=== PATIENT | male | born 1995 ===

== ENCOUNTER 2017-01-14 11:54 | Emergency (ER) | payer OTHER ==
[2017-01-14 12:06] VITALS: BMI 32.1
[2017-01-14 12:08] VITALS: BP 130/81; PULSE 78; RESP 18; TEMP 99.8; O2SAT 98
--- NOTE | 2017-01-14 12:13 | ED PDOC ---
Lower Extremity Pain/Injury Time Seen by Provider: 01/14/17 12:07 Chief Complaint (Provider): Right foot pain History Per: Patient History/Exam Limitations: no limitations Current Symptoms Are (Timing): Still Present Additional Complaint(s): 21 yo M in Ed for eval of right foot 1st to injury sustained last night injured while truing to get into are. pain with ROM of toe, discoloration to toe nail. no swelling improve, no radiation of pain only to distal aspect of toe. - Risk Factors DVT Risk Factors: Pos: None Past Medical History Reviewed: Historical Data, Nursing Documentation, Vital Signs Vital Signs: Last Vital Signs Temp 99.8 F H 01/14/17 12:05 Pulse 78 01/14/17 12:05 Resp 18 01/14/17 12:05 BP 130/81 01/14/17 12:05 Pulse Ox 98 01/14/17 12:05 - Medical History PMH: No Chronic Diseases - Family History Family History: States: No Known Family Hx - Allergies Allergies/Adverse Reactions: Allergies Allergy/AdvReac Type Severity Reaction Status Date / Time diphenhydramine AdvReac HEADACHE Verified 01/14/17 12:10 [From Advil PM] ibuprofen [From Advil PM] AdvReac HEADACHE Verified 01/14/17 12:10 Wells Criteria for PE - Wells Criteria for Pulmonary Embolism Clinical Signs and Symptoms of DVT: No P.E is #1 Diagnosis, or Equally Likely: No Heart Rate >100: No Immobilization at least 3 days;Surgery previous 4 weeks: No Previous, objectively diagnosed PE or DVT: No Hemoptysis: No Malignancy w/treatment within 6 months, or palliative: No Total Score: 0 Review of Systems ROS Statement: Except As Marked, All Systems Reviewed And Found Negative Musculoskeletal: Positive for: Foot Pain Physical Exam - Reviewed Nursing Documentation Reviewed: Yes Vital Signs Reviewed: Yes - Physical Exam Appears: Positive for: Well, Non-toxic, No Acute Distress Skin: Positive for: Normal Color, Warm, Dry Respiratory: Negative for: Accessory Muscle Use, Respiratory Distress Extremity: Positive for: Other (right toe: 1st digit-nail with hematoma mild tenderness noted mild swelling. dec ROM due to pain.) Neurologic/Psych: Positive for: Alert, Oriented (x3) - ECG O2 Sat by Pulse Oximetry: 98 (RA) Pulse Ox Interpretation: Normal - Radiology X-Ray: Interpreted by Me (active fracture) Medical Decision Making Medical Decision Making: Time: 12:11 Initial impression: Right foot pain Initial plan: Right foot x-ray normal impression of xray toe edgar taped and given surgical shoe with dhruv with podiatry ~ Scribe Attestation: Documented by Yolande Astudillo, acting as a scribe for EDWIN Richey. Provider Scribe Attestation: All medical record entries made by the Scribe were at my direction and personally dictated by me. I have reviewed the chart and agree that the record accurately reflects my personal performance of the history, physical exam, medical decision making, and the department course for this patient. I have also personally directed, reviewed, and agree with the discharge instructions and disposition. Disposition - Clinical Impression Clinical Impression: Toe injury - Patient ED Disposition Is Patient to be Admitted: No Counseled Patient/Family Regarding: Studies Performed, Diagnosis, Need For Followup - Disposition Referrals: Podiatry Clinic [Outside] Disposition: Routine/Home Disposition Time: 12:52 Condition: STABLE Instructions: Subungual Hematoma (ED)
--- NOTE | 2017-01-14 14:14 | RAD ---
PROCEDURE: Right Foot Radiographs. HISTORY: foot pain COMPARISON: None. FINDINGS: BONES: Normal. No fracture. JOINTS: Normal. SOFT TISSUES: Normal. OTHER FINDINGS: None. IMPRESSION: Normal right foot radiographs.
== END 2017-01-14 13:27 | disposition home or self-care (01) ==
LOC: H.ER 11:54
DX: S99.921A Unspecified injury of right foot, initial encounter (principal); W22.8XXA Striking against or struck by other objects, initial encounter; Y92.89 Other specified places as the place of occurrence of the external cause

== ENCOUNTER 2017-08-06 08:45 | Emergency (ER) | payer OTHER ==
[2017-08-06 08:53] VITALS: BMI 31.8
[2017-08-06 08:55] VITALS: TEMP 98.5
--- NOTE | 2017-08-06 09:25 | ED PDOC ---
Lower Extremity Pain/Injury Time Seen by Provider: 08/06/17 09:09 Chief Complaint (Nursing): Lower Extremity Problem/Injury History Per: Patient Onset/Duration Of Symptoms: Days (2) Current Symptoms Are (Timing): Still Present Severity: Mild Pain Scale Rating Of: 2 Additional Complaint(s): Right inguinal and right hip pain since yesterday. No injury. Pain radiates down front right thigh. Worse on flexion of hip. Denies abd pain Past Medical History Vital Signs: Last Vital Signs Temp 98.5 F 08/06/17 08:54 Pulse 91 H 08/06/17 08:54 Resp 20 08/06/17 08:54 BP 120/71 08/06/17 08:54 Pulse Ox 99 08/06/17 08:54 - Medical History PMH: Asthma - Family History Family History: States: Unknown Family Hx - Home Medications Home Medications: Ambulatory Orders Medication Instructions Recorded Cyclobenzaprine [Cyclobenzaprine 10 mg PO Q8 #10 tab 08/06/17 HCl] - Allergies Allergies/Adverse Reactions: Allergies Allergy/AdvReac Type Severity Reaction Status Date / Time diphenhydramine AdvReac HEADACHE Verified 01/14/17 12:10 [From Advil PM] ibuprofen [From Advil PM] AdvReac HEADACHE Verified 01/14/17 12:10 Review of Systems Constitutional: Negative for: Fever Gastrointestinal: Negative for: Nausea, Vomiting, Abdominal Pain, Diarrhea Musculoskeletal: Positive for: Other (Hip/inguinal pain) Neurological: Negative for: Weakness, Numbness Physical Exam - Physical Exam Appears: Positive for: Non-toxic, No Acute Distress Gastrointestinal/Abdominal: Positive for: Bowel Sounds, Soft. Negative for: Tenderness, Hernia Rectal: Positive for: Other (Right hip/inguinal area. No mass or hernia. Tenderness right ingunal/hip area. Pain on flexion and adduction of hip.) - ECG O2 Sat by Pulse Oximetry: 99 Disposition - Clinical Impression Clinical Impression: Inguinal strain - Patient ED Disposition Is Patient to be Admitted: No Counseled Patient/Family Regarding: Studies Performed, Diagnosis, Need For Followup, Rx Given - Disposition [facility]errals: [facility] [Outside] Disposition: Routine/Home Disposition Time: 10:08 Condition: FAIR Prescriptions: Cyclobenzaprine [Cyclobenzaprine HCl] 10 mg PO Q8 #10 tab Instructions: Groin Strain (DC) Forms: [employer] (Filipino)
[2017-08-06 10:14] VITALS: BP 128/82; PULSE 84; RESP 17; O2SAT 100
--- NOTE | 2017-08-06 13:37 | RAD ---
PROCEDURE: Right hip HISTORY: Pain COMPARISON: No prior TECHNIQUE: Ap view pelvis and right hip and lateral view right hip obtained FINDINGS: No evidence of acute fracture or dislocation. . The osseous structures appear intact. Both femoral heads are appropriately located within the respective acetabula. Note is made of a well-circumscribed rounded/elliptical shaped somewhat sclerotic appearing density overlying the inferior medial aspect of the right femoral head in the frontal projection which is not seen on additional projections and probably represents artifact. Follow-up of CT scan or MRI could be performed further evaluation only if clinically indicated. IMPRESSION: No evidence of acute displaced fracture nor dislocation. There is a well-circumscribed rounded/elliptical shaped somewhat sclerotic appearing density overlying the inferior medial aspect of the right femoral head in the frontal projection which is not seen on additional projections and probably represents artifact. Follow-up of CT scan or MRI could be performed further evaluation only if clinically indicated. Note this report was placed in PA review folder for followup.
== END 2017-08-06 10:10 | disposition home or self-care (01) ==
LOC: H.ER 08:45
DX: S39.011A Strain of muscle, fascia and tendon of abdomen, initial encounter (principal); J45.909 Unspecified asthma, uncomplicated; Z88.6 Allergy status to analgesic agent

== ENCOUNTER 2017-08-14 04:53 | Emergency (ER) | payer OTHER ==
[2017-08-14 04:53] VITALS: BMI 31.8
--- NOTE | 2017-08-14 05:56 | ED PDOC ---
Arrival/HPI - General Historian: Patient - General Chief Complaint: Hip Pain Time Seen by Provider: 08/14/17 05:05 - History of Present Illness Narrative History of Present Illness (Text): 08/14/17 05:55 21 yo M c/o R thigh pain x 1 week, reports that he started exercising, doing squats 1.5 weeks ago. Reports taking nsaids and muscle relaxer with no relief x 2 days. Reports no fever, trauma, injury, back pain, abdominal pain, urinary symptoms, trauma, injury, swelling, numbness, radiation, CP, SOB, h/o clots. ( Win NINO,Elsie Orozco) Past Medical History - Infectious Disease Hx of Infectious Diseases: None - Pulmonary Hx Asthma: Yes - Psychiatric Hx Substance Use: No - Anesthesia Hx Anesthesia: No Family/Social History Family/Social History: No Known Family HX Smoking Status: Never Smoked Hx Alcohol Use: No Hx Substance Use: No Allergies/Home Meds Allergies/Adverse Reactions: Allergies diphenhydramine [From Advil PM] Adverse Reaction (Verified 08/14/17 05:06) HEADACHE ibuprofen [From Advil PM] Adverse Reaction (Verified 08/14/17 05:06) HEADACHE Review of Systems - Review of Systems Constitutional: Normal. absent: Fatigue, Weight Change, Fevers Respiratory: Normal. absent: SOB, Cough Cardiovascular: Normal. absent: Chest Pain, Palpitations, Edema Gastrointestinal: Normal. absent: Abdominal Pain, Diarrhea, Vomiting Genitourinary Male: Normal. absent: Dysuria, Frequency Musculoskeletal: Normal, Other (R thigh pain). absent: Arthralgias, Back Pain Skin: Normal. absent: Rash Neurological: Normal. absent: Headache, Dizziness Physical Exam Vital Signs Reviewed: Yes - Systems Exam Head: Present: Atraumatic, Normocephalic Conjunctiva: Present: Normal Mouth: Present: Moist Mucous Membranes Neck: Present: Normal Range of Motion. No: MIDLINE TENDERNESS Respiratory/Chest: Present: Clear to Auscultation, Good Air Exchange. No: Respiratory Distress, Accessory Muscle Use Cardiovascular: Present: Regular Rate and Rhythm, Normal S1, S2. No: Murmurs Abdomen: No: Tenderness, Distention, Peritoneal Signs Back: Present: Normal Inspection. No: Midline Tenderness Upper Extremity: Present: Normal Inspection, Normal ROM, NORMAL PULSES, Neurovascularly Intact, Other Lower Extremity: Present: Normal Inspection, NORMAL PULSES, Normal ROM, Capillary Refill < 2 s, Other (+pain to the R thigh with ROM of the R hip/knee ) . No: Edema, CALF TENDERNESS, Tenderness, Swelling, Erythema, Deformity, Temperature Abnormalties, Neurovascularly Intact Neurological: Present: GCS=15, CN II-XII Intact, Speech Normal, Motor Func Grossly Intact, Normal Sensory Function Skin: Present: Warm, Dry, Normal Color. No: Rashes Psychiatric: Present: Alert, Oriented x 3, Normal Insight, Normal Concentration Vital Signs Temp Pulse Resp BP Pulse Ox 08/14/17 09:11 98.1 F 78 18 128/74 100 08/14/17 08:53 100 08/14/17 06:39 83 18 123/77 100 08/14/17 05:06 98.2 F 106 H 16 127/75 97 Medical Decision Making ED Course and Treatment: 08/14/17 06:00 Previous medical records reviewed, patient was seen in this ED on 08/06/17 and had an XR of the R hip. Plan : - Labs - IV - Toradol IV - CT R LE Case d/w Dr. Poe at 0600, agrees with current management. (Win NINO,Elsie Orozco) - Lab Interpretations Lab Results: 08/14/17 06:17 08/14/17 06:17 Lab Results 08/14/17 06:17: Sodium 142, Potassium 4.0, Chloride 99, Carbon Dioxide 28, Anion Gap 19, BUN 10, Creatinine 0.9, Est GFR ( Amer) > 60, Est GFR (Non- Af Amer) > 60, Random Glucose 110, Calcium 9.4, Total Bilirubin 1.1, AST 32, ALT 60, Alkaline Phosphatase 62, Total Creatine Kinase 201 H, Total Protein 7.7 , Albumin 4.4, Globulin 3.3, Albumin/Globulin Ratio 1.3 08/14/17 06:17: WBC 11.6 H, RBC 5.81, Hgb 15.8, Hct 46.0, MCV 79.2 L, MCH 27.3, MCHC 34.4, RDW 13.0, Plt Count 170, MPV 9.4, Neut % (Auto) 68.5, Lymph % (Auto) 21.7, [place] % (Auto) 6.9, Eos % (Auto) 2.4, Baso % (Auto) 0.5, Neut # (Auto) 7.9 H, Lymph # (Auto) 2.5, [place] # (Auto) 0.8, Eos # (Auto) 0.3, Baso # (Auto) 0.1 - RAD Interpretation Radiology Orders: 08/14/17 05:53 EXT LOWER W/O CONTRAST RIGHT [CT] Stat - Medication Orders Current Medication Orders: Discontinued Medications Ketorolac Tromethamine (Toradol) 30 mg IVP STAT STA Stop: 08/14/17 05:54 Last Admin: 08/14/17 06:11 Dose: 30 mg [facility] Pain Assessment Document 08/14/17 06:11 JOSE D (Rec: 08/14/17 06:12 [id number]) Pain Reassessment Is this a pain reassessment? No Sleep Is patient sleeping during reassessment? No Presence of Pain Presence of Pain Yes Pain Scale Used Pain Scale Used Numeric Location Left, Right or Bilateral Right Pain Location Body Site Thigh Description Description Intermittent Intensity of Pain at present 7 IVP Administration Document 08/14/17 06:11 JOSE D (Rec: 08/14/17 06:12 [id number]) Charges for Administration # of IVP Administrations 1 Re-Assess: [facility] Pain Reassessment Document 08/14/17 06:41 JOSE D (Rec: 08/14/17 06:55 [id number]) Sleep Is patient sleeping during reassessment? Yes - PA / [employer] / Resident Statement MD/DO has reviewed & agrees with the documentation as recorded. Disposition/Present on Arrival - Present on Arrival Any Indicators Present on Arrival: No History of DVT/PE: No History of Uncontrolled Diabetes: No Urinary Catheter: No History of Decub. Ulcer: No - Disposition Have Diagnosis and Disposition been Completed?: Yes Disposition Time: 06:00 - Disposition Diagnosis: Hip pain Disposition: HOME/ ROUTINE Condition: STABLE Discharge Instructions (ExitCare): Muscle and Bone Pain (DC) Additional Instructions: Return if not better in 3 days. Referrals: [facility] [Outside] - 08/16/17 8:52 am Forms: [employer] (Belarusian) Medical Decision Making Medical Decision Making: Time: 0700 Patient is signed out to Dr. Ba pending labs, lower extremity CT and reeval. Scribe Attestation: Documented by Ingrid Tracy, acting as a scribe for Willsi Poe MD. Provider Scribe Attestation: All medical record entries made by the Scribe were at my direction and personally dictated by me. I have reviewed the chart and agree that the record accurately reflects my personal performance of the history, physical exam, medical decision making, and the department course for this patient. I have also personally directed, reviewed, and agree with the discharge instructions and disposition. (Willis Poe)
[2017-08-14 06:20] LABS: BASO # 0.1 K/uL (0.0-0.2); BASO % 0.5 % (0.0-2.0); EOS # 0.3 K/uL (0.0-0.7); EOS % 2.4 % (0.0-4.0); HEMOGLOBIN 15.8 g/dL (12.0-18.0); LYMPH # 2.5 K/uL (1.0-4.3); LYMPH % 21.7 % (20.0-40.0); MEAN CELL VOLUME 79.2 fl (80.0-94.0); MEAN CORPUSCULAR HEMOGLOBIN 27.3 pg (27.0-31.0); MEAN CORPUSCULAR HGB CONC 34.4 g/dL (33.0-37.0); MEAN PLATELET VOLUME 9.4 fl (7.2-11.7); MONO # 0.8 K/uL (0.0-0.8); MONO % 6.9 % (0.0-10.0); NEUT # 7.9 K/uL (1.8-7.0); NEUT % 68.5 % (50.0-75.0); NRBC % 11.4 % (0.0-0.0); RBC 5.81 Mil/uL (4.40-5.90); WHITE BLOOD COUNT 11.6 K/uL (4.8-10.8)
[2017-08-14 06:29] LABS: ALB/GLOB RATIO 1.3 (1.0-2.1); ALBUMIN 4.4 g/dL (3.5-5.0); ALT/SGPT 60 U/L (21-72); AST/SGOT 32 U/L (17-59); BLOOD UREA NITROGEN 10 mg/dl (9-20); CALCIUM 9.4 mg/dL (8.4-10.2); GFR AFRICAN-AMERICAN > 60; GFR NON-AFRICAN AMERICAN > 60
[2017-08-14 06:41] VITALS: RESP 18; O2SAT 100
--- NOTE | 2017-08-14 07:41 | ED PDOC ---
- Laboratory Results Result Diagrams: 08/14/17 06:17 08/14/17 06:17 Interpretation Of Abn Labs: 11.6 wbc - ECG O2 Sat by Pulse Oximetry: 100 (RA) Pulse Ox Interpretation: Normal - CT Scan/US ct Other Rad Studies (CT/US): Read By Radiologist Other Rad Interpretation: no acute - Progress ED Course And Treament: 700: Took over care from Dr. Poe. Fu on CT of hip. Here with pain. Had x- ray that had findings and called back for CT. 852: Stable. AAOx3. Pain free. Tolerated PO. Ambulated with no issues. Fu with pcp. Medical Decision Making Medical Decision Making: Time: [address] FINDINGS: Bones/joints: Unremarkable. No acute fracture. No dislocation. No joint effusion. Soft tissues: Mild prepatellar stranding of the subcutaneous fat. No soft tissue mass or fluid collection. No soft tissue gas. IMPRESSION: No acute fracture dislocation. No soft tissue mass or fluid collection. Mild stranding of the subcutaneous fat anterior to the patella and proximal tibia. Thank you for allowing us to participate in the care of your patient. Dictated and Authenticated by: Maria Guadalupe Jose MD 08/14/2017 7:44 AM Eastern Time ([place] & [place]) Scribe Attestation: Documented by Mio Beckett, acting as a scribe for Dr. Nick Ba MD. Provider Scribe Attestation: All medical record entries made by the Scribe were at my direction and personally dictated by me. I have reviewed the chart and agree that the record accurately reflects my personal performance of the history, physical exam, medical decision making, and the department course for this patient. I have also personally directed, reviewed, and agree with the discharge instructions and disposition. Disposition - Clinical Impression Clinical Impression: Hip pain - POA Present On Arrival: None - Disposition Referrals: [facility] [Outside] - 08/16/17 8:52 am Disposition: Routine/Home Disposition Time: 08:00 Condition: STABLE Additional Instructions: Return if not better in 3 days. Instructions: Muscle and Bone Pain (DC) Forms: [employer] (South African)
[2017-08-14 09:12] VITALS: BP 128/74; PULSE 78; TEMP 98.1
--- NOTE | 2017-08-14 09:29 | CT ---
PROCEDURE: CT right femur HISTORY: R thigh pain COMPARISON: Not available TECHNIQUE: 2.5 mm contiguous axial sections were acquired through the right femur. Sagittal and coronal images were reformatted from the axial scan. FINDINGS: There is no acute fracture. There is no lytic or blastic osseous lesion. There is no periosteal reaction. There is no soft tissue mass or fluid collection. There is mild stranding of the prepatellar subcutaneous fat, nonspecific. There is no prepatellar bursal fluid collection. IMPRESSION: No fracture. Nonspecific stranding of the prepatellar subcutaneous fat. Otherwise unremarkable. Preliminary interpretation of this examination was reported by [facility] at 7:44 a.m. on . There is concurrence of this report with the preliminary interpretation.
== END 2017-08-14 09:05 | disposition home or self-care (01) ==
LOC: H.ER 04:53
DX: M25.551 Pain in right hip (principal); J45.909 Unspecified asthma, uncomplicated; Z88.6 Allergy status to analgesic agent
CPT/HCPCS: 73700; 80053; 82550; 85025; 96374; 99285; J1885

== ENCOUNTER 2017-12-14 16:03 | Emergency (ER) | payer OTHER ==
[2017-12-14 16:03] VITALS: BMI 31.8
[2017-12-14 16:12] VITALS: BP 126/73; PULSE 86; RESP 16; TEMP 98.4; O2SAT 100
--- NOTE | 2017-12-14 16:47 | ED PDOC ---
HPI: General Adult Time Seen by Provider: 12/14/17 16:15 Chief Complaint (Nursing): ENT Problem Chief Complaint (Provider): ENT Problem History Per: Patient History/Exam Limitations: no limitations Onset/Duration Of Symptoms: Days (x 1) Current Symptoms Are (Timing): Still Present Additional Complaint(s): 22 year old male presents to the Ed with bilateral ear pain for the last day. Pain worsens when he touches the ear or opens jaw. Denies fever, chills and trauma. PMD: Dr Dasia Handley Past Medical History Reviewed: Historical Data, Nursing Documentation, Vital Signs Vital Signs: Last Vital Signs Temp 98.4 F 12/14/17 16:09 Pulse 86 12/14/17 16:09 Resp 16 12/14/17 16:09 BP 126/73 12/14/17 16:09 Pulse Ox 100 12/14/17 16:09 - Medical History PMH: Asthma - Surgical History Surgical History: No Surg Hx - Family History Family History: States: Unknown Family Hx - Home Medications Home Medications: Ambulatory Orders Medication Instructions Recorded Cyclobenzaprine [Cyclobenzaprine 10 mg PO Q8 #10 tab 08/06/17 HCl] Neomycin/Polymyxin/Hydrocort 3 - 4 drop AU QID #1 bottle 12/14/17 [Cortisporin Otic Soln] - Allergies Allergies/Adverse Reactions: Allergies Allergy/AdvReac Type Severity Reaction Status Date / Time diphenhydramine AdvReac HEADACHE Verified 12/14/17 16:09 [From Advil PM] ibuprofen [From Advil PM] AdvReac HEADACHE Verified 12/14/17 16:09 Review of Systems ROS Statement: Except As Marked, All Systems Reviewed And Found Negative ENT: Positive for: Ear Pain (b/l) Physical Exam - Reviewed Nursing Documentation Reviewed: Yes Vital Signs Reviewed: Yes - Physical Exam Appears: Positive for: No Acute Distress Head Exam: Positive for: ATRAUMATIC, NORMAL INSPECTION, NORMOCEPHALIC Skin: Positive for: Normal Color, Warm Eye Exam: Positive for: EOMI, Normal appearance, PERRL ENT: Positive for: TM Is/Are (decreased cone of light bilaterally), Other ( positive tragal tenderness noted with mild erythema of eternal ear canal with no edema; non tender teeth with minimal tenderness noted in left TMJ) Neck: Positive for: Normal, Painless ROM, Supple (no lymphadenopathy) Cardiovascular/Chest: Positive for: Regular Rate, Rhythm Respiratory: Positive for: CNT, Normal Breath Sounds Neurologic/Psych: Positive for: Alert, Oriented (x 3). Negative for: Motor/ Sensory Deficits - ECG O2 Sat by Pulse Oximetry: 100 (RA) Pulse Ox Interpretation: Normal Medical Decision Making Medical Decision Makin:44 --Patient is stable and will be discharged with a prescription for ear drops. Instructions provided. Follow up with PMD. Scribe Attestation: Documented by Alecia Dozier, acting as a scribe for Jordon Flynn PA-C Provider Scribe Attestation: All medical record entries made by the Scribe were at my direction and personally dictated by me. I have reviewed the chart and agree that the record accurately reflects my personal performance of the history, physical exam, medical decision making, and the department course for this patient. I have also personally directed, reviewed, and agree with the discharge instructions and disposition. Disposition - Clinical Impression Clinical Impression: Otitis externa - Patient ED Disposition Is Patient to be Admitted: No - Disposition Referrals: Tom Connelly MD [Staff Provider] - Disposition Time: 16:44 Condition: STABLE Additional Instructions: LUCIA DELA CRUZ, thank you for letting us take care of you today. Your provider was Nick Ba MD and you were treated for B/L EAR PAIN. The emergency medical care you received today was directed at your acute symptoms. If you were prescribed any medication, please fill it and take as directed. It may take several days for your symptoms to resolve. Return to the Emergency Department if your symptoms worsen, do not improve, or if you have any other problems. Please contact your doctor or call one of the physicians/clinics you have been referred to that are listed on the Patient Visit Information form that is included in your discharge packet. Bring any paperwork you were given at discharge with you along with any medications you are taking to your follow up visit. Our treatment cannot replace ongoing medical care by a primary care provider outside of the emergency department. Thank you for allowing the [facility] team to be part of your care today. If you had an X-Ray or CT scan: A Radiologist will review the ED reading if any change in treatment is needed we will contact you. If you had a blood, urine, or wound culture: It will take several days for the results, if any change in treatment is needed we will contact you. If you had an STI test: It will take 48 hours for the results. Please call after 1 week if you have not heard back. Prescriptions: Neomycin/Polymyxin/Hydrocort [Cortisporin Otic Soln] 3 - 4 drop AU QID #1 bottle Instructions: Outer Ear Infection (DC)
== END 2017-12-14 16:52 | disposition home or self-care (01) ==
LOC: H.ER 16:03
DX: H60.93 Unspecified otitis externa, bilateral (principal); Z88.6 Allergy status to analgesic agent